=== PATIENT | male | born 1995 | race Caucasian/White ===

== ENCOUNTER 2018-04-07 10:38 | Emergency (ER) | payer OTHER ==
--- NOTE | 2018-04-07 12:05 | EDPHY ---
H & P Time Seen by Provider: 04/07/18 11:28 HPI/ROS: CHIEF COMPLAINT: "I think I have an abscess on my shoulder" HISTORY OF PRESENT ILLNESS: 22-year-old male history of IV drug abuse, currently living in a rehabilitation house, states that 2-1/2 weeks ago while living in [place] he injected IV heroin into his left deltoid. He was seen at a local emergency department told that he may have an abscess however no incision and drainage was done at that time. He was started on Keflex and Bactrim. Ever since he has now moved to [place] and complains of continued lesion on his left lateral deltoid, minimally tender. The physician at his rehabilitation house gave him another prescription for Keflex and Bactrim recommend he come to the ER for an ultrasound. No erythema. No fever or chills. No chest pain. No syncope or near syncope. PRIMARY CARE PROVIDER: REVIEW OF SYSTEMS: 10 systems reviewed and negative with the exception of the elements mentioned in the history of present illness PAST MEDICAL & SURGICAL HISTORY: IV drug use history SOCIAL HISTORY: sober from IV heroin times 14 days PHYSICAL EXAM (Prior to examination, patient consented to physical exam, hands were washed and my usual and customary physical exam procedures followed) 1) GENERAL: Well-developed, well-nourished, alert and oriented. Appears to be in no acute distress. 2) HEAD: Normocephalic, atraumatic 3) HEENT: Pupils equal, round, reactive to light bilaterally. Sclera anicteric. 4) NECK: Full range of motion, no meningeal signs. 5) LUNGS: Clear auscultation bilaterally, no wheezes, no rhonchi, no retractions. 6) HEART: Regular rate and rhythm, no murmur, no heave, no gallop. 7) ABDOMEN: No guarding, no rebound, no focal tenderness, negative McBurney's, negative Hernandez's, negative Rovsing's, negative peritoneal sign, 8) MUSCULOSKELETAL: Left upper extremity: a minimally tender lesion on the left lateral deltoid is visualized . There is no discoloration. There is no drainage. He has excellent pain-free range of motion left shoulder no pain with axial loading of the glenoid. Brisk pulses distally. Normal coloration temperature distally 9) BACK: No CVA tenderness, no midline vertebral tenderness, no fluctuance, no step-off, no obvious trauma, no visual or palpable abnormality. 10) SKIN: No rash, no petechiae. 11) Psychiatric: Patient is oriented X 3, there is no agitation. DIFFERENTIAL DIAGNOSIS: In no particular order including but not limited to abscess, septic arthritis, necrotizing fasciitis, myositis, cellulitis Smoking Status: Heavy smoker Constitutional: Initial Vital Signs Temperature (C) 37.1 C 04/07/18 10:48 Heart Rate 89 04/07/18 10:48 Respiratory Rate 18 04/07/18 10:48 Blood Pressure 107/59 L 04/07/18 10:48 O2 Sat (%) 95 04/07/18 10:48 O2 Delivery Mode Room Air Allergies/Adverse Reactions: No Known Allergies Allergy (Unverified 04/07/18 10:46) Home Medications: Medication Instructions Recorded CeleBREX 04/07/18 Doxycycline 100 mg Prepack#2 04/07/18 Gabapentin 04/07/18 Trileptal 04/07/18 traZODone 04/07/18 MDM/Departure - MDM Imaging Results: Imaging Impressions Extremity Ultrasound 04/07/18 11:54 Impression: 1. Complex collection corresponding to area of palpable concern over the left shoulder region laterally that could represent hematoma versus complex abscess or phlegmon. If this area is nontender without associated erythema, most likely represents hematoma. If indicated, this can be aspirated with ultrasound guidance. Findings discussed with Evan Starks PAC at 12:38 hour, 04/07/2018. Images review myself Procedures: Procedure: Needle aspiration Indication: Area of fluctuance possibly secondary to hematoma, possibly secondary to abscess After reviewing the imaging studies with radiologist indications risks benefits discussed with patient. Area was prepped draped normal sterile fashion, 1% lidocaine with epinephrine infused at site of maximal fluctuance. 18 gauge needle was introduced. Negative for purulent discharge she positive for blood only. Procedure performed by myself. Patient tolerated procedure well ED Course/Re-evaluation: 12:04 p.m.: No definitive abscess on evaluation. Will obtain ultrasound for further evaluation. Does not appear septic. Doubt septic arthritis in the presence of full pain-free range of motion of the left shoulder. I saw this patient independently based on established practice protocols. Care of patient under supervision of secondary supervising physician Dr Kim with whom I discussed case. 1:10 p.m.: Needle aspiration negative for purulent material. Recommend continued warm packs on the area, given follow-up information and my usual and and customary hematoma precautions instructions. Given the name of General surgery on-call should this become a chronic issue causing discomfort the patient. He is already on a course of antibiotics which he may continue. Doubt septic arthritis. Doubt necrotizing fasciitis. Doubt myositis. Doubt abscess. - Depart Disposition: Home, Routine, Self-Care Clinical Impression: Hematoma left deltoid Condition: Good Instructions: Hematoma (ED) Additional Instructions: Return to the ER if you develop redness, swelling, discharge, warmth to the wound, red streaks going up your arm, or any other symptoms that concern you. Referrals: Ibrahima Leos MD [Medical Doctor] - 5-7 days, if not improved
[2018-04-07 13:20] VITALS: BP 120/62
== END 2018-04-07 13:20 | disposition home or self-care (01) ==
PROC: 0H9CXZZ Drainage of Left Upper Arm Skin, External Approach (ICD-10-PCS; principal; 2018-04-07)
DX: S40.012A Contusion of left shoulder, initial encounter (principal); F17.200 Nicotine dependence, unspecified, uncomplicated